=== PATIENT | male | born 1965 | race Caucasian/White ===

== ENCOUNTER 2019-11-25 14:17 | Emergency (ER) | payer BC, SELFPAY ==
[~2019-11-25] VITALS: Ht 165.1 cm; Wt 90.7 kg
[2019-11-25 14:31] VITALS: BP 119/56
--- NOTE | 2019-11-25 14:32 | NUR ---
PT PLACED IN TENT FOR COVID-19 PRECAUTIONS
--- NOTE | 2019-11-25 14:37 | NUR ---
54 Y/O MALE FROM HOME C/O COUGH AND CHILLS SINCE YESTERDAY. STATES DRY, NONPRODUCTIVE COUGH. RR EVEN AND UNLABORED, NO DISTRESS AT THIS TIME. PT AFEBRILE UPON ARRIVAL. AWAKE AND ALERT. VSS MEDHX: DENIES
--- NOTE | 2019-11-25 15:42 | NUR ---
COVID 19 SWAB COLLECTED
[2019-11-25 15:43] VITALS: BP 119/56
--- NOTE | 2019-11-25 15:43 | NUR ---
Patient discharged with v/s stable. Written and verbal after care instructions given and explained. Patient alert, oriented and verbalized understanding of instructions. Ambulatory with steady gait. All questions addressed prior to discharge. ID band removed. Patient advised to follow up with PMD.
--- NOTE | 2019-11-27 20:00 | NUR ---
POSITIVE COVID RESULTS RECEIVED FROM LAB. REQUESTED HARD COPY TO BE TAKEN TO LAB. COPY WILL BE PLACED IN INFECTION CONTROL'S MAILBOX.
== END 2019-11-25 15:43 | disposition home or self-care (01) ==
LOC: MED 14:17 → EEVIPCON 14:17 → MED 15:43
DX: U07.1 COVID-19 (principal); R05 Cough; M79.10 Myalgia, unspecified site; R06.02 Shortness of breath
CPT/HCPCS: 99283; U0003